=== PATIENT | female | born 1995 | race Native Hawaiian/Other Pacific Islander ===

== ENCOUNTER 2017-12-20 09:12 | Outpatient (CLI) | payer OTHER, BC | END 2017-12-20 22:16 | disposition home or self-care (01) | LOC: MRI 09:12 | DX: M23.8X9 Other internal derangements of unspecified knee (principal) ==

== ENCOUNTER 2020-05-25 12:43 | Outpatient (CLI) | payer OTHER | END 2020-05-25 19:40 | disposition home or self-care (01) | LOC: RAD 12:43 | PROVIDERS: ATTEND Physician Assistant | DX: M79.645 Pain in left finger(s) (principal) ==

== ENCOUNTER 2020-10-06 09:06 | Outpatient (CLI) | payer OTHER | END 2020-10-06 19:43 | disposition home or self-care (01) | LOC: US 09:06 | PROVIDERS: ATTEND Internal Medicine Gastroenterology | DX: R14.0 Abdominal distension (gaseous) (principal) ==

== ENCOUNTER 2021-04-17 10:14 | Outpatient (CLI) | payer OTHER | END 2021-04-17 20:24 | disposition home or self-care (01) | LOC: RAD 10:14 | PROVIDERS: ATTEND Specialist | DX: M99.05 Segmental and somatic dysfunction of pelvic region (principal) ==

== ENCOUNTER 2021-04-19 11:09 | Outpatient (CLI) | payer OTHER | END 2021-04-19 19:03 | disposition home or self-care (01) | LOC: RAD 11:09 | PROVIDERS: ATTEND Specialist | DX: M99.05 Segmental and somatic dysfunction of pelvic region (principal) ==

== ENCOUNTER 2021-04-21 10:15 | Outpatient (CLI) | payer OTHER | END 2021-04-21 20:30 | disposition home or self-care (01) | LOC: RAD 10:15 | PROVIDERS: ATTEND Specialist | DX: R19.00 Intra-abdominal and pelvic swelling, mass and lump, unspecified site (principal) ==

== ENCOUNTER 2022-08-28 09:11 | Outpatient (CLI) | payer OTHER | END 2022-08-28 21:01 | LOC: CT 09:11 | PROVIDERS: ATTEND Nurse Practitioner | DX: R19.09 Other intra-abdominal and pelvic swelling, mass and lump (principal) | CPT/HCPCS: 36415; 82565; 84520; Q9963 ==

== ENCOUNTER 2023-01-16 20:37 | Outpatient (CLI) | payer OTHER ==
[2023-01-16 21:39] LABS: POTASSIUM 3.6 mmol/L (3.6-5.2); SODIUM 139 mmol/L (136-145)
[2023-01-16 21:42] LABS: PLATELET COUNT 180 K/uL (152-353)
== END 2023-01-16 23:32 | disposition home or self-care (01) ==
LOC: LABW 20:37
DX: R10.2 Pelvic and perineal pain (principal); N93.8 Other specified abnormal uterine and vaginal bleeding; T83.9XXA Unspecified complication of genitourinary prosthetic device, implant and graft, initial encounter
CPT/HCPCS: 36415; 80053; 83036; 84443; 84702; 85027; 86850; 86900; 86901